=== PATIENT | male | born 1990 | race Caucasian/White ===

== ENCOUNTER 2017-03-28 08:26 | Day surgery (SDC) | payer OTHER ==
[2017-03-28] MEDS ORDERED: ceFAZolin 2 GM PREMIX (*) 2 GM/50 ML BAG IVPB ONE (08:43)
[2017-03-28] MEDS ORDERED: Midazolam* 1 MG/ML 5 ML VIAL (5 MG) ONE (09:55)
[2017-03-28] MEDS ORDERED: fentaNYL* 50 MCG/ML 2 ML VIAL (100 MCG VIAL) ONE ×3 (09:55→16:26)
[2017-03-28] MEDS ORDERED: Famotidine IV* 10 MG/ML 2 ML (20 mg) ONE (09:55)
[2017-03-28] MEDS ORDERED: Bupivacaine 0.25% SDV* 30 ML ONE (10:05)
[2017-03-28] MEDS ORDERED: ROPIVACAINE 5 MG/ML 30 ML BTL (0.5%) ONE (11:07)
[2017-03-28] MEDS ORDERED: DiMENhydriNATE IV* 50 MG/ML VIAL IV PUSH PRN (11:40)
[2017-03-28] MEDS ORDERED: PROCHLORPERAZINE INJ 5 MG/ML 2 ML VIAL IV PRN (11:40)
[2017-03-28] MEDS ORDERED: Ondansetron INJ* 2 MG/ML VIAL IV PRN (11:40)
[2017-03-28] MEDS ORDERED: Acetaminophen TAB* 325 MG PO PRN (11:40)
[2017-03-28] MEDS ORDERED: oxyCODONE/Acetamin 5/325 MG* TAB PO PRN (11:40)
[2017-03-28] MEDS ORDERED: Ketorolac INJ* 30 MG/ML 1 ML VIAL ONE (13:51)
[2017-03-28] MEDS ORDERED: Propofol* 10 MG/ML 20 ML BTL IV PUSH ONE (13:51)
[2017-03-28] MEDS ORDERED: Dexamethasone IV* 4 MG/ML 1 ML (4 MG) ONE (13:51)
[2017-03-28] MEDS ORDERED: Lidocaine 2% PF * 5 ML VIAL ONE (13:52)
[2017-03-28] MEDS ORDERED: ceFAZolin 1 GM VIAL(*) ONE (14:55)
[2017-03-28] MEDS ORDERED: HYDROmorphone INJ* 1 MG/ML CARPUJECT SYRINGE ONE (16:26)
[2017-03-28] MEDS: fentaNYL* 50 MCG/ML 2 ML VIAL (100 MCG VIAL) IV PRN ×2 (16:28→16:48)
[2017-03-28 17:41] VITALS: BP 153/73
--- NOTE | 2017-03-28 21:38 | RAD ---
CPT II Codes: 6045F INDICATION: Polytrauma to the right wrist TECHNIQUE: Intraoperative fluoroscopy was provided during plate and screw fixation of the distal right radius as well as single medullary screw spanning the scaphoid bone. FINDINGS: 11 spot films depict anatomic alignment of plate and screw fixators along the dorsal and volar aspects of the distal right radius as well as a single medullary screw spanning the waist of the scaphoid fracture. Fluoroscopy time: 60 seconds IMPRESSION: As above.
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
== END 2017-03-28 17:42 | disposition home or self-care (01) ==
LOC: OR 08:26
PROVIDERS: ATTEND Orthopaedic Surgery Hand Surgery
DX: S52.571A Other intraarticular fracture of lower end of right radius, initial encounter for closed fracture (principal); S62.031K Displaced fracture of proximal third of navicular [scaphoid] bone of right wrist, subsequent encounter for fracture with nonunion; W19.XXXA Unspecified fall, initial encounter; Y93.89 Activity, other specified; Y92.008 Other place in unspecified non-institutional (private) residence as the place of occurrence of the external cause; K21.9 Gastro-esophageal reflux disease without esophagitis
CPT/HCPCS: 76000; 88302; C1713; C1776; J0690; J1100; J1170; J1885; J2250; J2704; J2795; J3010

== ENCOUNTER 2017-10-06 06:56 | Day surgery (SDC) | payer OTHER ==
[~2017-10-06 06:56] MED LIST: Buffered Lidocaine 0.9% SYRIN* 5 ML/SYR SYRINGE INTRADERM ONE; Famotidine IV* 10 MG/ML 2 ML (20 mg) IV ONE
[2017-10-06] MEDS ORDERED: ceFAZolin 2 GM PREMIX (*) 2 GM/50 ML BAG IVPB ONE (07:16)
[2017-10-06] MEDS ORDERED: Famotidine IV* 10 MG/ML 2 ML (20 mg) ONE (07:16)
[2017-10-06] MEDS ORDERED: Sodium Citrate/Citric Acid* 15 ML UDC ONE (08:27)
[2017-10-06] MEDS ORDERED: Bupivacaine 0.25% SDV* 30 ML ONE ×2 (08:29→09:51)
[2017-10-06] MEDS ORDERED: fentaNYL* 50 MCG/ML 2 ML VIAL (100 MCG VIAL) ONE ×2 (08:36→10:23)
[2017-10-06] MEDS ORDERED: Lidocaine 2% PF * 5 ML VIAL ONE (08:46)
[2017-10-06] MEDS ORDERED: Propofol* 10 MG/ML 20 ML BTL IV PUSH ONE (08:46)
[2017-10-06] MEDS ORDERED: Ketorolac INJ* 30 MG/ML 1 ML VIAL ONE (09:00)
[2017-10-06] MEDS ORDERED: Naloxone* 0.4 MG/ML 1 ML VIAL IV PRN (09:03)
[2017-10-06] MEDS ORDERED: Ondansetron INJ* 2 MG/ML VIAL IV PRN (09:03)
[2017-10-06] MEDS: fentaNYL* 50 MCG/ML 2 ML VIAL (100 MCG VIAL) IV PRN ×2 (10:26→10:47)
[2017-10-06 10:40] VITALS: BP 142/99
[2017-10-06] MEDS ORDERED: traMADol TAB* 50 MG ONE (10:41)
--- NOTE | 2017-10-07 12:18 | OP ---
DATE OF OPERATION: 10/06/17 - [facility] DATE OF : 89 SURGEON: Inder Stanley MD CYBER SECURITY ARCHITECT: GERA Gonzales. An assistant librarian was needed for the procedure to aid in positioning of the arm and retraction. ANESTHESIOLOGIST: Dr. Hernandez. ANESTHESIA: General. PRE-OP DIAGNOSIS: Right retained distal radius plate and screws. POST-OP DIAGNOSIS: Right retained distal radius plate and screws. OPERATIVE PROCEDURE: 1. Removal of right volar distal radius plate and screws. 2. Removal of 2 dorsal distal radius plates and screws through a separate incision in entirely separate approach. INDICATIONS: Mumtaz had a very complex distal radius fracture that he sustained over 6 months ago in the setting of a prior proximal pole scaphoid nonunion. We did extensive surgery and fixed the scaphoid nonunion and fixed the distal radius fracture. He has done very well from this given the very distal nature of the plates necessary to fix the fracture. I told him we have to go back and remove the plates to decrease the chance of tendon rupture. He understood the risks and benefits. He wants to proceed with surgery. He understands there is a risk of refracture. ESTIMATED BLOOD LOSS: 2 mL. COMPLICATIONS: None. FINDINGS: As expected. DESCRIPTION OF PROCEDURE: Mumtaz was seen in the preoperative holding area. The correct side, site and procedure were identified. We came back to the operating room. The arm was prepped and draped in the usual fashion. A time- out was performed. I exsanguinated the arm with the Esmarch and the tourniquet was inflated to 250 mmHg. I then reopened his volar incision over the FCR tendon. Dissection was carried down. The FCR tendon was released from the scar tissue attached to it. It was retracted ulnarly. The subsheath was released. Interval between the radial artery and the FPL muscle and tendon were developed to take me down the pronator quadratus which had healed. This was released off its radial aspect and T'd back distally. The soft tissue overlying all of these screws was released with a combination of the Bovie and knife. The screws were then removed. The plate was removed. The sharp bony edges and the soft tissue and the plate holes were debrided back with a rongeur till the time smooth surface remained. The area was irrigated out. The pronator was closed with 3-0 Vicryl. The skin was closed with 3-0 Monocryl suture. I then pronated the arm and made a separate incision reopening his prior dorsal wound. Dissection was carried down sharply. Full thickness flaps were raised off of the extensor retinaculum. The prior Ethibond sutures were seen where the retinaculum had been closed. I reentered the retinaculum in the same interval. The EPL tendon was already transposed. Full thickness flaps were then raised subperiosteally right off both plates. Both plates were completely exposed. I then used a screw home delivery driver to remove first the radial plate and then the ulnar plate. The bony edges after the plates were removed were cleaned up and smoothed down with a rongeur. The wounds were irrigated out. The retinaculum was closed with 4-0 Ethibond suture. Subcutaneous tissue was reapproximated with 3-0 Vicryl and skin was closed with 3-0 Monocryl suture. Steri-Strips were placed. The operative areas were infiltrated with 0.25% plain Marcaine. Wounds were dressed with soft dressings. Tourniquet was deflated. The hand pinked up immediately and he was taken to the recovery room in stable condition. [id number]/[facility] #: [id number] JUNAID
--- NOTE | 2017-10-07 15:42 | RAD ---
CPT II Codes: G9500 INDICATION: Chronic right wrist pain TECHNIQUE: Intraoperative fluoroscopy was provided during ORIF of the right wrist. FINDINGS: 4 spot films depict an anatomically aligned intramedullary screws spanning the scaphoid bone. Lucencies overlying the distal right radius are consistent with prior surgery. The visualized bones are anatomically aligned.. Fluoroscopy time: 9 seconds IMPRESSION: As above.
== END 2017-10-06 11:14 | disposition home or self-care (01) ==
LOC: OREAST 06:56
PROVIDERS: ATTEND Orthopaedic Surgery Hand Surgery
DX: S52.571D Other intraarticular fracture of lower end of right radius, subsequent encounter for closed fracture with routine healing (principal); T84.84XD Pain due to internal orthopedic prosthetic devices, implants and grafts, subsequent encounter; Y83.1 Surgical operation with implant of artificial internal device as the cause of abnormal reaction of the patient, or of later complication, without mention of misadventure at the time of the procedure
CPT/HCPCS: 76000; 88300; A9270-GY; J0690; J1885; J2704; J3010